=== PATIENT | male | born 1965 | race Caucasian/White ===

== ENCOUNTER 2018-03-13 03:23 | Emergency (ER) | payer OTHER ==
[~2018-03-13] VITALS: Ht 180.3 cm; Wt 72.6 kg
--- NOTE | ~2018-03-13 | EKG ---
[address] [address] [place] [address] ELECTROCARDIOGRAM REPORT Name: CIPRIANO REARDON Room #: [facility] Cobb#: [id number] Admission: 03/13/18 Attend Phys: Discharge: 03/13/18 Date of : 63 Report #: [id number] THIS REPORT FOR: //name// [facility] ED Test Date: 2018-03-13 Test Time: 03:30:56 Pat Name: CIPRIANO REARDON Department: Room: Gender: City Attorney: YOVANNY : 1965 Requested By: Edy Moreno Order Number: [id number] MD: Huseyin Jaramillo Measurements Intervals [place] Rate: 49 P: 79 TN: 130 QRS: 40 QRSD: 101 T: 35 QT: 438 QTc: 396 Interpretive Statements Sinus bradycardia Otherwise normal tracing Compared to ECG 10/18/2016 09:01:01 No significant changes Electronically Signed On 03-13-2018 9:03:44 CDT by Huseyin Jaramillo [email or web address] <ELECTRONICALLY SIGNED> By: Huseyin Jaramillo MD, [facility] 03/13/18 0903 0330 0330 Huseyin Jaramillo MD, FACC /EPI
[~2018-03-13 03:23] MED LIST: HYDROCODONE-AP1 EAC6 PO; IBUPROFEN 600600 M1 PO; MOBIC15 MG PO; NORCO 5-325 TA1 EACH PO; PREDNISONE 20 M20 MG PO; PROMETHAZINE D480 ML PO; TIZANIDINE HCL4 MG PO
[2018-03-13] MEDS ORDERED: ALEVE220 MG PO (03:33)
[2018-03-13 03:52] LABS: ABSOLUTE NEUTROPHILS 9.8 thou/uL (1.4-8.2); BASOPHILS 1.3 % (0.0-2.0); EOSINOPHILS 3.7 % (0.0-3.0); HEMATOCRIT 43.5 % (42.0-52.0); HEMOGLOBIN 14.9 gm/dL (14.0-18.0); LYMPHOCYTES 22.6 % (24.0-44.0); MCH 31.8 pg (26.0-34.0); MCHC 34.4 g/dL (28.0-37.0); MCV 92.7 fL (80.0-100.0); MONOCYTES 9.9 % (1.0-8.0); PLATELET COUNT 181 thou/uL (150-400); POLYS 62.5 % (36.0-66.0); RBC 4.69 mil/uL (4.50-6.00); RDW 14.1 % (10.5-14.5); WBC 15.7 thou/uL (4.0-11.0)
[2018-03-13 03:57] LABS: ANION GAP 6 mmol/L (7-16); BUN 27 mg/dL (7-18); CALCIUM 8.4 mg/dL (8.5-10.1); CHLORIDE 105 mmol/L (98-107); CO2 28 mmol/L (21-32); GLUCOSE 102 mg/dL (74-106); POTASSIUM 4.1 mmol/L (3.5-5.1); SODIUM 139 mmol/L (136-145)
[2018-03-13 04:06] LABS: ALBUMIN 3.5 g/dL (3.4-5.0); MAGNESIUM 2.1 mg/dL (1.8-2.4); SGOT 17 U/L (15-37); SGPT 19 U/L (30-65); TOTAL BILIRUBIN 0.3 mg/dL (<0.1-1.0); TOTAL PROTEIN 6.7 g/dL (6.4-8.2); TROPONIN-I <0.06 ng/mL (<0.06)
[2018-03-13] MEDS ORDERED: NORFLEX100 MG PO (04:43)
[2018-03-13] MEDS ORDERED: NAPROSYN500 MG PO (04:43)
[2018-03-13 04:47] VITALS: BP 130/88
== END 2018-03-13 05:01 | disposition home or self-care (01) ==
LOC: ER 03:23
PROVIDERS: Emergency Medicine
DX: M43.6 Torticollis (principal); M25.511 Pain in right shoulder; F17.210 Nicotine dependence, cigarettes, uncomplicated; M46.96 Unspecified inflammatory spondylopathy, lumbar region